=== PATIENT | male | born 1950 | race Two or more races ===

== ENCOUNTER 2022-11-16 00:45 | Inpatient (IN) | payer MEDICARE ==
[~2022-11-16] VITALS: Ht 167.6 cm; Wt 65.0 kg
[2022-11-16] MEDS ORDERED: ONDANSETRON HCL 4MG/2ML INJ IV ONE (01:15)
[2022-11-16] MEDS ORDERED: MORPHINE SULFATE 4 MG/ML CPJ (NOT FOR IM USE) IV ONE (01:15)
[2022-11-16 03:14] LABS: MEAN CORPUSCULAR HEMOGLOBIN 29.1 pg (28.0-32.0); MEAN CORPUSCULAR VOLUME 87.5 fL (80.0-94.0); MEAN PLATELET VOLUME 8.1 fl (7.4-10.4); PLATELET 224 x1000/uL (130-400); RED CELL DISTRIBUTION WIDTH 15.1 % (11.6-14.6)
[2022-11-16 03:21] LABS: CHLORIDE 101 mEq/L (98-107)
[2022-11-16 03:32] LABS: PLATELET ESTIMATE NORMAL
[2022-11-16] MEDS ORDERED: ALPR0.5T MT (14:00)
[2022-11-16] MEDS ORDERED: CLOP75TA33 PO (14:00)
[2022-11-16] MEDS ORDERED: METF-416 PO (14:00)
[2022-11-16] MEDS ORDERED: ATOR40TA70 PO (14:00)
[2022-11-16] MEDS ORDERED: POTA-202 PO (14:00)
[2022-11-16] MEDS ORDERED: METO25TA6 PO (14:00)
[2022-11-16] MEDS ORDERED: ASPI-1497 PO (14:00)
[2022-11-16] MEDS ORDERED: AMLO10TA80 PO (14:00)
[2022-11-16] MEDS ORDERED: ALLO100T57 PO (14:00)
[2022-11-16 14:03] VITALS: BP 146/78
[2022-11-16] MEDS ORDERED: MORPHINE SULFATE 2 MG/ML CPJ (NOT FOR IM USE) IV PRN (14:45)
[2022-11-16] MEDS ORDERED: DEXTROSE 50% WATER 50ML SYRINGE IV PRN (14:45)
[2022-11-16] MEDS ORDERED: POTASSIUM CHLORIDE 20MEQ TABLET SR PO NR (14:45)
[2022-11-16] MEDS ORDERED: ONDANSETRON HCL 4MG/2ML INJ IV PRN (14:45)
[2022-11-16] MEDS ORDERED: ALPRAZOLAM 0.5 MG TABLET PO PRN (14:45)
[2022-11-16] MEDS ORDERED: NALOXONE HCL 0.4MG/ML VIAL IV PRN (15:00)
[2022-11-16] MEDS ORDERED: ALLOPURINOL 300 MG TABLET PO SCH (15:00)
[2022-11-16] MEDS: ASPIRIN 81MG TABLET PO SCH (15:30)
[2022-11-16] MEDS: ACETAMINOPHEN 325MG TABLET PO PRN ×2 (15:30→21:34)
[2022-11-16] MEDS: CLOPIDOGREL 75MG TABLET PO SCH (15:30)
[2022-11-16] MEDS: GUAIFENESIN-DM 200MG-20MG/10ML UDC PO PRN ×2 (15:31→21:52)
[2022-11-16 16:00] VITALS: BP 124/76
[2022-11-16] MEDS: ALLOPURINOL 300 MG TABLET PO SCH (17:07)
[2022-11-16] MEDS: BLOOD SUGAR DIAGNOSTIC STRIP TEST SCH ×2 (17:07→21:43)
[2022-11-16] MEDS: INSULIN LISPRO 100 UNITS/ML SUBCUT SCH ×2 (17:15→21:44)
[2022-11-16 20:00] VITALS: BP 120/74
[2022-11-16] MEDS: ATORVASTATIN CALCIUM 40MG TABLET PO SCH (21:34)
[2022-11-16] MEDS: METOPROLOL TARTRATE 25MG TABLET PO SCH (21:43)
[2022-11-16] MEDS: ENOXAPARIN 40MG/0.4ML SYR SUBCUT SCH (21:47)
[2022-11-17] VITALS: BP 112/69
[2022-11-17 04:00] VITALS: BP 118/85
[2022-11-17 07:06] LABS: HEMATOCRIT. 44.4 % (42.0-52.0); HEMOGLOBIN. 14.8 g/dL (14.0-18.0); MEAN CORPUSCULAR HEMOGLOBIN 29.6 pg (28.0-32.0); MEAN CORPUSCULAR VOLUME 88.7 fL (80.0-94.0); PLATELET 215 x1000/uL (130-400); RED CELL DISTRIBUTION WIDTH 15.4 % (11.6-14.6)
[2022-11-17] MEDS: BLOOD SUGAR DIAGNOSTIC STRIP TEST SCH ×4 (07:43→20:18)
[2022-11-17 07:53] LABS: CHLORIDE 103 mEq/L (98-107)
[2022-11-17 08:00] VITALS: BP 125/77
[2022-11-17] MEDS ORDERED: METFORMIN HCL 500MG TABLET PO SCH (09:00)
[2022-11-17] MEDS: POTASSIUM CHLORIDE 10MEQ TABLET SR PO SCH (09:27)
[2022-11-17] MEDS: ASPIRIN 81MG TABLET PO SCH (09:27)
[2022-11-17] MEDS: METOPROLOL TARTRATE 25MG TABLET PO SCH ×2 (09:29→20:28)
[2022-11-17] MEDS: CLOPIDOGREL 75MG TABLET PO SCH (09:30)
[2022-11-17] MEDS: AMLODIPINE 10MG TABLET PO SCH (09:30)
[2022-11-17] MEDS: ALLOPURINOL 300 MG TABLET PO SCH (09:30)
[2022-11-17] MEDS: INSULIN LISPRO 100 UNITS/ML SUBCUT SCH ×4 (09:43→20:18)
[2022-11-17] MEDS ORDERED: NITROGLYCERIN 0.4MG TABLET SL SL PRN (10:45)
[2022-11-17] MEDS: ACETAMINOPHEN 325MG TABLET PO PRN (11:29)
[2022-11-17 12:00] VITALS: BP 105/61
[2022-11-17] MEDS: DEXT 5%/0.45% NACL 1000ML 1,000 ML IV SCH (15:30)
[2022-11-17 16:00] VITALS: BP 112/62
[2022-11-17 17:49] LABS: T4 FREE 1.12 ng/dL (0.76-1.46)
[2022-11-17 20:00] VITALS: BP 147/78
[2022-11-17] MEDS: ENOXAPARIN 40MG/0.4ML SYR SUBCUT SCH (20:18)
[2022-11-17] MEDS: ATORVASTATIN CALCIUM 40MG TABLET PO SCH (20:28)
[2022-11-18] VITALS (7 sets, daily range): BP systolic 93–139; BP diastolic 69–81
[2022-11-18] MEDS: ACETAMINOPHEN 325MG TABLET PO PRN ×2 (00:21→20:40)
[2022-11-18] MEDS: DEXT 5%/0.45% NACL 1000ML 1,000 ML IV SCH ×2 (04:17→16:20)
[2022-11-18 06:13] LABS: HEMATOCRIT. 43.6 % (42.0-52.0); HEMOGLOBIN. 14.6 g/dL (14.0-18.0); MEAN CORPUSCULAR HEMOGLOBIN 29.4 pg (28.0-32.0); MEAN CORPUSCULAR VOLUME 87.9 fL (80.0-94.0); MEAN PLATELET VOLUME 7.8 fl (7.4-10.4); PLATELET 217 x1000/uL (130-400); RED BLOOD CELL COUNT 4.96 mill/uL (4.7-6.1); RED CELL DISTRIBUTION WIDTH 15.1 % (11.6-14.6)
[2022-11-18] MEDS: BLOOD SUGAR DIAGNOSTIC STRIP TEST SCH ×4 (07:40→20:50)
[2022-11-18] MEDS: INSULIN LISPRO 100 UNITS/ML SUBCUT SCH ×4 (08:10→21:02)
[2022-11-18 08:18] LABS: CHLORIDE 102 mEq/L (98-107)
[2022-11-18 08:27] LABS: HDL CHOLESTEROL 31 mg/dL (40-59); LDL CHOLESTEROL 46 mg/dL (5-100)
[2022-11-18] MEDS: POTASSIUM CHLORIDE 10MEQ TABLET SR PO SCH (08:47)
[2022-11-18] MEDS: AMLODIPINE 10MG TABLET PO SCH (08:47)
[2022-11-18] MEDS: METOPROLOL TARTRATE 25MG TABLET PO SCH ×2 (08:47→20:33)
[2022-11-18] MEDS: CLOPIDOGREL 75MG TABLET PO SCH (08:47)
[2022-11-18] MEDS: ALLOPURINOL 300 MG TABLET PO SCH (08:47)
[2022-11-18] MEDS: ASPIRIN 81MG TABLET PO SCH (08:47)
[2022-11-18 10:42] LABS: PLATELET ESTIMATE NORMAL
[2022-11-18] MEDS ORDERED: ENOXAPARIN 80MG/0.8ML SYR SUBCUT NR (15:00)
[2022-11-18] MEDS: ISOSORBIDE DINITRATE 10MG TABLET PO SCH (16:19)
[2022-11-18 17:02] LABS: PROTHROMBIN TIME 10.3 sec (9.6-11.0)
[2022-11-18 18:39] LABS: PLATELET ESTIMATE NORMAL
[2022-11-18] MEDS: ATORVASTATIN CALCIUM 40MG TABLET PO SCH (20:40)
[2022-11-18] MEDS: NITROGLYCERIN OINT 1GM/INCH UDPKT TD SCH ×2 (22:00→22:34)
[2022-11-19] VITALS: BP 109/70
[2022-11-19 04:00] VITALS: BP 111/71
[2022-11-19] MEDS: NITROGLYCERIN OINT 1GM/INCH UDPKT TD SCH ×3 (06:07→23:04)
[2022-11-19] MEDS: DEXT 5%/0.45% NACL 1000ML 1,000 ML IV SCH (06:07)
[2022-11-19] MEDS: BLOOD SUGAR DIAGNOSTIC STRIP TEST SCH ×4 (06:20→21:00)
[2022-11-19] MEDS: INSULIN LISPRO 100 UNITS/ML SUBCUT SCH ×4 (06:25→23:03)
[2022-11-19] MEDS: GUAIFENESIN-DM 200MG-20MG/10ML UDC PO PRN ×3 (06:29→23:23)
[2022-11-19 08:00] VITALS: BP 126/78
[2022-11-19 08:08] LABS: BASOPHILS % 0.8 % (0.0-2.0); EOSINOPHILS % 8.6 % (0.0-5.0); HEMATOCRIT. 43.2 % (42.0-52.0); HEMOGLOBIN. 14.3 g/dL (14.0-18.0); LYMPHOCYTES % 23.2 % (20.0-50.0); MEAN CORPUSCULAR HEMOGLOBIN 29.1 pg (28.0-32.0); MEAN CORPUSCULAR VOLUME 87.7 fL (80.0-94.0); MEAN PLATELET VOLUME 7.8 fl (7.4-10.4); MONOCYTES % 12.4 % (2.0-8.0); PLATELET 244 x1000/uL (130-400); RED BLOOD CELL COUNT 4.92 mill/uL (4.7-6.1); RED CELL DISTRIBUTION WIDTH 15.2 % (11.6-14.6)
[2022-11-19] MEDS ORDERED: ENOXAPARIN 80MG/0.8ML SYR SUBCUT SCH (09:00)
[2022-11-19 09:05] LABS: CHLORIDE 105 mEq/L (98-107)
[2022-11-19] MEDS: ASPIRIN 81MG TABLET PO SCH (10:10)
[2022-11-19] MEDS: AMLODIPINE 10MG TABLET PO SCH (10:10)
[2022-11-19] MEDS: ISOSORBIDE DINITRATE 10MG TABLET PO SCH ×2 (10:10→17:00)
[2022-11-19] MEDS: ALLOPURINOL 300 MG TABLET PO SCH (10:11)
[2022-11-19] MEDS: METOPROLOL TARTRATE 25MG TABLET PO SCH ×2 (10:11→23:05)
[2022-11-19] MEDS: POTASSIUM CHLORIDE 10MEQ TABLET SR PO SCH (10:11)
[2022-11-19] MEDS: CLOPIDOGREL 75MG TABLET PO SCH (10:11)
[2022-11-19] MEDS: ACETAMINOPHEN 325MG TABLET PO PRN ×2 (10:47→23:23)
[2022-11-19 12:00] VITALS: BP 98/64
[2022-11-19] MEDS: ENOXAPARIN 80MG/0.8ML SYR SUBCUT SCH ×2 (13:52→23:05)
[2022-11-19] MEDS: SODIUM CHLORIDE 0.45% 1,000 ML IV SCH (14:04)
[2022-11-19 16:00] VITALS: BP 123/71
[2022-11-19 20:00] VITALS: BP 122/78
[2022-11-19] MEDS: ATORVASTATIN CALCIUM 40MG TABLET PO SCH (23:05)
[2022-11-20] MEDS: SODIUM CHLORIDE 0.45% 1,000 ML IV SCH ×2 (03:40→17:13)
[2022-11-20 04:00] VITALS: BP 131/81
[2022-11-20] MEDS: NITROGLYCERIN OINT 1GM/INCH UDPKT TD SCH ×4 (06:00→22:00)
[2022-11-20] MEDS: ACETAMINOPHEN 325MG TABLET PO PRN (06:55)
[2022-11-20] MEDS: BLOOD SUGAR DIAGNOSTIC STRIP TEST SCH ×4 (06:56→21:15)
[2022-11-20 07:01] LABS: BASOPHILS % 0.8 % (0.0-2.0); HEMATOCRIT. 43.4 % (42.0-52.0); HEMOGLOBIN. 14.1 g/dL (14.0-18.0); LYMPHOCYTES % 25.3 % (20.0-50.0); MEAN CORPUSCULAR HEMOGLOBIN 28.7 pg (28.0-32.0); MEAN CORPUSCULAR VOLUME 88.4 fL (80.0-94.0); MEAN PLATELET VOLUME 7.8 fl (7.4-10.4); MONOCYTES % 11.3 % (2.0-8.0); NEUTROPHILS % 55.6 % (40.0-76.0); PLATELET 247 x1000/uL (130-400); RED BLOOD CELL COUNT 4.91 mill/uL (4.7-6.1); RED CELL DISTRIBUTION WIDTH 15.1 % (11.6-14.6)
[2022-11-20] MEDS: INSULIN LISPRO 100 UNITS/ML SUBCUT SCH ×4 (07:10→21:19)
[2022-11-20 07:57] LABS: CHLORIDE 105 mEq/L (98-107)
[2022-11-20 08:00] VITALS: BP 133/82
[2022-11-20] MEDS: METOPROLOL TARTRATE 25MG TABLET PO SCH ×2 (09:33→21:15)
[2022-11-20] MEDS: ISOSORBIDE DINITRATE 10MG TABLET PO SCH ×2 (09:34→17:00)
[2022-11-20] MEDS: POTASSIUM CHLORIDE 10MEQ TABLET SR PO SCH (09:34)
[2022-11-20] MEDS: ALLOPURINOL 300 MG TABLET PO SCH (09:34)
[2022-11-20] MEDS: AMLODIPINE 10MG TABLET PO SCH (09:34)
[2022-11-20] MEDS ORDERED: HEPARIN 1000 UNITS/ML 10ML ONE (10:50)
[2022-11-20] MEDS ORDERED: IODIXANOL 320MG/ML 100 ML BOTTLE IV ONE ×2 (10:51→11:56)
[2022-11-20] MEDS ORDERED: MIDAZOLAM HCL 2 MG/2 ML VIAL ONE (11:11)
[2022-11-20] MEDS ORDERED: LIDOCAINE HCL/PF 1% 10 MG/ML 5ML VIAL ONE (11:11)
[2022-11-20] MEDS ORDERED: FENTANYL CITRATE/PF 50MCG/ML 2ML VIAL ONE (11:11)
[2022-11-20] MEDS ORDERED: ASPIRIN/SOD BICARB/CITRIC ACID 324MG TAB EFF ONE (11:24)
[2022-11-20] MEDS ORDERED: ATROPINE SULFATE 1MG/10ML SYR IV PRN (12:15)
[2022-11-20] MEDS ORDERED: NICARDIPINE 100MCG/ML 10ML VIAL (CATH LAB) IV ONE (13:36)
[2022-11-20] MEDS ORDERED: NITROGLYCERIN 50MCG/ML 10ML VIAL (CATH LAB) IV ONE (13:36)
[2022-11-20 13:40] VITALS: BP 133/83
[2022-11-20 16:00] VITALS: BP 124/71
[2022-11-20] MEDS: CLOPIDOGREL 75MG TABLET PO SCH (17:07)
[2022-11-20] MEDS: ASPIRIN 81MG TABLET PO SCH (17:07)
[2022-11-20 20:00] VITALS: BP 131/78
[2022-11-20] MEDS: ATORVASTATIN CALCIUM 40MG TABLET PO SCH (21:15)
[2022-11-21] VITALS: BP 121/64
[2022-11-21] MEDS: ACETAMINOPHEN 325MG TABLET PO PRN ×3 (00:57→21:27)
[2022-11-21 04:00] VITALS: BP 124/81
[2022-11-21] MEDS: NITROGLYCERIN OINT 1GM/INCH UDPKT TD SCH ×3 (06:00→21:28)
[2022-11-21] MEDS: BLOOD SUGAR DIAGNOSTIC STRIP TEST SCH ×4 (06:08→21:28)
[2022-11-21] MEDS: SODIUM CHLORIDE 0.45% 1,000 ML IV SCH ×2 (06:10→16:34)
[2022-11-21] MEDS: INSULIN LISPRO 100 UNITS/ML SUBCUT SCH ×4 (06:12→21:26)
[2022-11-21 07:35] LABS: BASOPHILS % 0.7 % (0.0-2.0); EOSINOPHILS % 5.4 % (0.0-5.0); HEMATOCRIT. 43.6 % (42.0-52.0); HEMOGLOBIN. 14.8 g/dL (14.0-18.0); LYMPHOCYTES % 24.1 % (20.0-50.0); MEAN CORPUSCULAR HEMOGLOBIN 29.6 pg (28.0-32.0); MEAN CORPUSCULAR VOLUME 87.3 fL (80.0-94.0); MEAN PLATELET VOLUME 7.9 fl (7.4-10.4); MONOCYTES % 12.1 % (2.0-8.0); NEUTROPHILS % 57.7 % (40.0-76.0); PLATELET 256 x1000/uL (130-400); RED BLOOD CELL COUNT 4.99 mill/uL (4.7-6.1); RED CELL DISTRIBUTION WIDTH 14.9 % (11.6-14.6)
[2022-11-21 08:23] VITALS: BP 115/75
[2022-11-21] MEDS: ISOSORBIDE DINITRATE 10MG TABLET PO SCH ×3 (08:36→15:11)
[2022-11-21] MEDS: ASPIRIN 81MG TABLET PO SCH (08:36)
[2022-11-21] MEDS: CLOPIDOGREL 75MG TABLET PO SCH (08:36)
[2022-11-21] MEDS: AMLODIPINE 10MG TABLET PO SCH (08:36)
[2022-11-21] MEDS: POTASSIUM CHLORIDE 10MEQ TABLET SR PO SCH (08:36)
[2022-11-21] MEDS: METOPROLOL TARTRATE 25MG TABLET PO SCH ×2 (08:37→21:27)
[2022-11-21] MEDS: ALLOPURINOL 300 MG TABLET PO SCH (08:37)
[2022-11-21 08:38] LABS: CHLORIDE 105 mEq/L (98-107)
[2022-11-21] MEDS: ENOXAPARIN 80MG/0.8ML SYR SUBCUT SCH ×2 (10:35→21:28)
[2022-11-21 12:00] VITALS: BP 107/74
[2022-11-21] MEDS: GUAIFENESIN-DM 200MG-20MG/10ML UDC PO PRN ×2 (13:09→21:28)
[2022-11-21 16:00] VITALS: BP 124/77
[2022-11-21 20:00] VITALS: BP 129/82
[2022-11-21] MEDS: ATORVASTATIN CALCIUM 40MG TABLET PO SCH (21:26)
[2022-11-22] VITALS: BP 130/82
[2022-11-22 04:00] VITALS: BP 156/87
[2022-11-22] MEDS: NITROGLYCERIN OINT 1GM/INCH UDPKT TD SCH ×3 (05:42→22:00)
[2022-11-22] MEDS: ACETAMINOPHEN 325MG TABLET PO PRN ×2 (05:42→22:21)
[2022-11-22] MEDS: BLOOD SUGAR DIAGNOSTIC STRIP TEST SCH ×4 (05:47→21:12)
[2022-11-22] MEDS: INSULIN LISPRO 100 UNITS/ML SUBCUT SCH ×4 (06:41→21:11)
[2022-11-22 08:00] VITALS: BP 120/76
[2022-11-22] MEDS: ALLOPURINOL 300 MG TABLET PO SCH (08:37)
[2022-11-22] MEDS: ASPIRIN 81MG TABLET PO SCH (08:37)
[2022-11-22] MEDS: CLOPIDOGREL 75MG TABLET PO SCH (08:38)
[2022-11-22] MEDS: AMLODIPINE 10MG TABLET PO SCH (08:38)
[2022-11-22] MEDS: POTASSIUM CHLORIDE 10MEQ TABLET SR PO SCH (08:38)
[2022-11-22] MEDS: METOPROLOL TARTRATE 25MG TABLET PO SCH ×2 (08:39→21:12)
[2022-11-22] MEDS: ISOSORBIDE DINITRATE 10MG TABLET PO SCH ×3 (08:39→17:00)
[2022-11-22] MEDS: SODIUM CHLORIDE 0.45% 1,000 ML IV SCH ×2 (08:41→22:00)
[2022-11-22] MEDS: ENOXAPARIN 80MG/0.8ML SYR SUBCUT SCH ×2 (09:00→21:12)
[2022-11-22 10:41] LABS: BASOPHILS % 0.8 % (0.0-2.0); HEMATOCRIT. 43.6 % (42.0-52.0); HEMOGLOBIN. 14.3 g/dL (14.0-18.0); LYMPHOCYTES % 19.6 % (20.0-50.0); MEAN CORPUSCULAR HEMOGLOBIN 28.8 pg (28.0-32.0); MEAN CORPUSCULAR VOLUME 87.7 fL (80.0-94.0); MEAN PLATELET VOLUME 7.5 fl (7.4-10.4); MONOCYTES % 11.6 % (2.0-8.0); PLATELET 259 x1000/uL (130-400); RED BLOOD CELL COUNT 4.98 mill/uL (4.7-6.1); RED CELL DISTRIBUTION WIDTH 15.3 % (11.6-14.6)
[2022-11-22 11:02] LABS: CHLORIDE 107 mEq/L (98-107)
[2022-11-22 12:00] VITALS: BP 130/78
[2022-11-22 16:00] VITALS: BP 118/85
[2022-11-22 20:00] VITALS: BP 127/75
[2022-11-22] MEDS: ATORVASTATIN CALCIUM 40MG TABLET PO SCH (21:11)
[2022-11-22] MEDS: GUAIFENESIN-DM 200MG-20MG/10ML UDC PO PRN (21:38)
[2022-11-23] VITALS: BP 116/84
[2022-11-23 04:00] VITALS: BP 124/76
[2022-11-23] MEDS: NITROGLYCERIN OINT 1GM/INCH UDPKT TD SCH ×3 (05:41→21:21)
[2022-11-23] MEDS: BLOOD SUGAR DIAGNOSTIC STRIP TEST SCH ×4 (05:41→21:07)
[2022-11-23 08:00] VITALS: BP_SYST 115; BP_DIAS 71; BP_DIAS 76
[2022-11-23] MEDS: ISOSORBIDE DINITRATE 10MG TABLET PO SCH ×2 (09:00→16:41)
[2022-11-23] MEDS: ASPIRIN 81MG TABLET PO SCH (09:32)
[2022-11-23] MEDS: POTASSIUM CHLORIDE 10MEQ TABLET SR PO SCH (09:33)
[2022-11-23] MEDS: METOPROLOL TARTRATE 25MG TABLET PO SCH ×2 (09:33→21:07)
[2022-11-23] MEDS: AMLODIPINE 10MG TABLET PO SCH (09:33)
[2022-11-23] MEDS: CLOPIDOGREL 75MG TABLET PO SCH (09:34)
[2022-11-23] MEDS: ALLOPURINOL 300 MG TABLET PO SCH (09:34)
[2022-11-23] MEDS: ENOXAPARIN 80MG/0.8ML SYR SUBCUT SCH ×2 (09:35→21:07)
[2022-11-23 12:00] VITALS: BP 135/75
[2022-11-23] MEDS: SODIUM CHLORIDE 0.45% 1,000 ML IV SCH ×2 (12:16→23:54)
[2022-11-23] MEDS: INSULIN LISPRO 100 UNITS/ML SUBCUT SCH ×3 (12:22→21:07)
[2022-11-23 16:00] VITALS: BP 136/77
[2022-11-23 20:00] VITALS: BP 142/83
[2022-11-23] MEDS: GUAIFENESIN-DM 200MG-20MG/10ML UDC PO PRN (21:07)
[2022-11-23] MEDS: ATORVASTATIN CALCIUM 40MG TABLET PO SCH (21:07)
[2022-11-23] MEDS: ACETAMINOPHEN 325MG TABLET PO PRN (21:21)
[2022-11-24] VITALS (12 sets, daily range): BP systolic 113–132; BP diastolic 71–80
[2022-11-24] MEDS: BLOOD SUGAR DIAGNOSTIC STRIP TEST SCH ×3 (05:27→20:39)
[2022-11-24] MEDS: INSULIN LISPRO 100 UNITS/ML SUBCUT SCH ×3 (05:27→20:40)
[2022-11-24] MEDS: NITROGLYCERIN OINT 1GM/INCH UDPKT TD SCH ×3 (05:28→22:00)
[2022-11-24] MEDS: ISOSORBIDE DINITRATE 10MG TABLET PO SCH ×2 (09:00→16:00)
[2022-11-24] MEDS: METOPROLOL TARTRATE 25MG TABLET PO SCH ×2 (09:52→20:39)
[2022-11-24] MEDS: CLOPIDOGREL 75MG TABLET PO SCH (09:52)
[2022-11-24] MEDS: ALLOPURINOL 300 MG TABLET PO SCH (09:52)
[2022-11-24] MEDS: POTASSIUM CHLORIDE 10MEQ TABLET SR PO SCH (09:52)
[2022-11-24] MEDS: ASPIRIN 81MG TABLET PO SCH ×2 (09:52→17:18)
[2022-11-24] MEDS: AMLODIPINE 10MG TABLET PO SCH (09:53)
[2022-11-24 11:49] LABS: CHLORIDE 106 mEq/L (98-107)
[2022-11-24 12:10] LABS: BASOPHILS % 0.8 % (0.0-2.0); EOSINOPHILS % 5.9 % (0.0-5.0); HEMATOCRIT. 43.8 % (42.0-52.0); HEMOGLOBIN. 14.4 g/dL (14.0-18.0); LYMPHOCYTES % 19.4 % (20.0-50.0); MEAN CORPUSCULAR HEMOGLOBIN 29.3 pg (28.0-32.0); MEAN PLATELET VOLUME 7.5 fl (7.4-10.4); MONOCYTES % 11.4 % (2.0-8.0); NEUTROPHILS % 62.5 % (40.0-76.0); PLATELET 309 x1000/uL (130-400); RED BLOOD CELL COUNT 4.93 mill/uL (4.7-6.1); RED CELL DISTRIBUTION WIDTH 15.1 % (11.6-14.6)
[2022-11-24] MEDS ORDERED: HEPARIN 1000 UNITS/ML 10ML ONE (12:28)
[2022-11-24] MEDS ORDERED: ASPIRIN/SOD BICARB/CITRIC ACID 324MG TAB EFF ONE ×2 (12:43→12:51)
[2022-11-24] MEDS ORDERED: LIDOCAINE HCL 1% 20ML VIAL (Pyxis) INJ ONE (12:47)
[2022-11-24] MEDS ORDERED: FENTANYL CITRATE/PF 50MCG/ML 2ML VIAL ONE (13:02)
[2022-11-24] MEDS ORDERED: MIDAZOLAM HCL 2 MG/2 ML VIAL ONE (13:02)
[2022-11-24] MEDS ORDERED: IODIXANOL 320MG/ML 100 ML BOTTLE IV ONE ×2 (13:05→14:09)
[2022-11-24] MEDS ORDERED: CLOPIDOGREL 75MG TABLET ONE (14:18)
[2022-11-24] MEDS ORDERED: ONDANSETRON HCL 4MG/2ML INJ IV PRN (14:45)
[2022-11-24] MEDS ORDERED: CLOPIDOGREL 75MG TABLET PO NR (14:45)
[2022-11-24] MEDS ORDERED: MORPHINE SULFATE 2 MG/ML CPJ (NOT FOR IM USE) IV PRN (14:45)
[2022-11-24] MEDS ORDERED: ATROPINE SULFATE 1MG/10ML SYR IV PRN (14:45)
[2022-11-24] MEDS ORDERED: ACETAMINOPHEN 325MG TABLET PO PRN (14:45)
[2022-11-24] MEDS: SODIUM CHLORIDE 0.45% 1,000 ML IV SCH (16:01)
[2022-11-24] MEDS: GUAIFENESIN-DM 200MG-20MG/10ML UDC PO PRN (20:38)
[2022-11-24] MEDS: ATORVASTATIN CALCIUM 40MG TABLET PO SCH (20:38)
[2022-11-24] MEDS: ACETAMINOPHEN 325MG TABLET PO PRN (20:38)
[2022-11-25] VITALS: BP 117/71
[2022-11-25] MEDS: SODIUM CHLORIDE 0.45% 1,000 ML IV SCH (03:47)
[2022-11-25] MEDS: ACETAMINOPHEN 325MG TABLET PO PRN (03:53)
[2022-11-25 04:00] VITALS: BP 123/77
[2022-11-25] MEDS: NITROGLYCERIN OINT 1GM/INCH UDPKT TD SCH ×2 (06:00→13:07)
[2022-11-25] MEDS: BLOOD SUGAR DIAGNOSTIC STRIP TEST SCH ×2 (06:19→11:53)
[2022-11-25] MEDS: INSULIN LISPRO 100 UNITS/ML SUBCUT SCH ×2 (07:13→12:20)
[2022-11-25 08:00] VITALS: BP 118/71
[2022-11-25 08:01] LABS: BASOPHILS % 0.6 % (0.0-2.0); EOSINOPHILS % 4.2 % (0.0-5.0); HEMATOCRIT. 41.2 % (42.0-52.0); LYMPHOCYTES % 15.8 % (20.0-50.0); MEAN CORPUSCULAR HEMOGLOBIN 29.6 pg (28.0-32.0); MEAN CORPUSCULAR VOLUME 87.3 fL (80.0-94.0); MEAN PLATELET VOLUME 7.7 fl (7.4-10.4); MONOCYTES % 12.1 % (2.0-8.0); NEUTROPHILS % 67.3 % (40.0-76.0); PLATELET 272 x1000/uL (130-400); RED BLOOD CELL COUNT 4.71 mill/uL (4.7-6.1); RED CELL DISTRIBUTION WIDTH 14.9 % (11.6-14.6)
[2022-11-25] MEDS: ALLOPURINOL 300 MG TABLET PO SCH (08:14)
[2022-11-25] MEDS: AMLODIPINE 10MG TABLET PO SCH (08:14)
[2022-11-25] MEDS: POTASSIUM CHLORIDE 10MEQ TABLET SR PO SCH (08:14)
[2022-11-25] MEDS: CLOPIDOGREL 75MG TABLET PO SCH (08:14)
[2022-11-25] MEDS: ASPIRIN 81MG TABLET PO SCH (08:14)
[2022-11-25] MEDS: METOPROLOL TARTRATE 25MG TABLET PO SCH (08:15)
[2022-11-25] MEDS: ISOSORBIDE DINITRATE 10MG TABLET PO SCH (08:15)
[2022-11-25 09:49] LABS: CHLORIDE 105 mEq/L (98-107)
[2022-11-25] MEDS ORDERED: NALOXONE HCL 0.4MG/ML VIAL IV PRN (10:15)
[2022-11-25 12:00] VITALS: BP 122/73
[2022-11-25 13:24] VITALS: BP 122/73
[2022-11-25 16:00] VITALS: BP 120/71
== END 2022-11-25 18:45 | disposition home or self-care (01) | DRG 246 ==
LOC: ER 00:45 → MICUSO 04:55 → 7WST 14:00 → 7EST 11-18 08:21 → 3WST 11-24 15:07
PROVIDERS: ADMIT Internal Medicine; ATTEND Internal Medicine
PROC: 4A023N7 Measurement of Cardiac Sampling and Pressure, Left Heart, Percutaneous Approach (ICD-10-PCS; 2022-11-20)
PROC: B2111ZZ Fluoroscopy of Multiple Coronary Arteries using Low Osmolar Contrast (ICD-10-PCS; 2022-11-20)
PROC: B2151ZZ Fluoroscopy of Left Heart using Low Osmolar Contrast (ICD-10-PCS; 2022-11-20)
PROC: 027034Z Dilation of Coronary Artery, One Artery with Drug-eluting Intraluminal Device, Percutaneous Approach (ICD-10-PCS; principal; 2022-11-24)
PROC: 02703ZZ Dilation of Coronary Artery, One Artery, Percutaneous Approach (ICD-10-PCS; 2022-11-24)
DX: I25.110 Atherosclerotic heart disease of native coronary artery with unstable angina pectoris (principal); U07.1 COVID-19; I11.0 Hypertensive heart disease with heart failure; I50.9 Heart failure, unspecified; D72.825 Bandemia; E11.65 Type 2 diabetes mellitus with hyperglycemia; I25.2 Old myocardial infarction; Z95.5 Presence of coronary angioplasty implant and graft
CPT/HCPCS: 36415; 71045; 80048; 80053; 80061; 82962; 83036; 83735; 83880; 84439; 84443; 84480; 84484; 85025; 85347; 87426; 92928; 93005; 93306; 93454; 93458; 93922; 99285; C1725; C1760; C1769; C1874; C1887; C1893; J1644; J1650; J1815; J2250; J2270; J2405; J3010; J3490; Q9967; U0003; U0005; C1761

== ENCOUNTER 2024-03-20 19:31 | Inpatient (IN) | payer MEDICARE ==
[~2024-03-20] VITALS: Ht 167.6 cm; Wt 60.8 kg
[~2024-03-20 19:31] MED LIST: ALLO100T57 PO; ALPR0.5T MT; AMLO10TA80 PO; ASPI-1497 PO; ATOR40TA70 PO; CLOP75TA33 PO; METF-416 PO; METO25TA6 PO; POTA-202 PO
[2024-03-20 21:32] LABS: BASOPHILS % 0.3 % (0.0-2.0); EOSINOPHILS % 1.4 % (0.0-5.0); HEMATOCRIT. 39.3 % (42.0-52.0); HEMOGLOBIN. 12.9 g/dL (14.0-18.0); LYMPHOCYTES % 5.5 % (20.0-50.0); MEAN CORPUSCULAR HEMOGLOBIN 28.1 pg (28.0-32.0); MEAN CORPUSCULAR HGB CONC 32.8 g/dL (31.0-37.0); MEAN CORPUSCULAR VOLUME 85.6 fL (80.0-94.0); MEAN PLATELET VOLUME 8.1 fl (7.4-10.4); NEUTROPHILS % 84.8 % (40.0-76.0); PLATELET 271 x1000/uL (130-400); RED BLOOD CELL COUNT 4.59 mill/uL (4.7-6.1); RED CELL DISTRIBUTION WIDTH 16.2 % (11.6-14.6); WHITE BLOOD COUNT 10.3 x1000/uL (4.5-11.0)
[2024-03-20 21:33] LABS: DIFFERENTIAL COMMENT 1
[2024-03-20 21:38] LABS: CHLORIDE 99 mEq/L (98-107); POTASSIUM 3.1 mEq/L (3.5-5.1); SODIUM 136 mEq/L (136-145)
[2024-03-20 21:39] LABS: CALCIUM 9.3 mg/dL (8.7-10.4); CARBON DIOXIDE 28 mEq/L (21-32)
[2024-03-20 21:42] LABS: INR 1.3; PROTHROMBIN TIME 14.5 sec (9.6-11.0)
[2024-03-20 21:44] LABS: CREATININE 0.5 mg/dL (0.6-1.3); GLUCOSE 160 mg/dL (70-105); UREA NITROGEN BLOOD 7 mg/dL (9-23)
[2024-03-20] MEDS: MORPHINE SULFATE 2 MG/ML INJ (NOT FOR IM USE) IV ONE (22:06)
[2024-03-20 22:10] LABS: CLARITY URINE CLEAR (CLEAR); COLOR URINE YELLOW (YELLOW); GLUCOSE URINE NEGATIVE (NEGATIVE); KETONES URINE NEGATIVE (NEGATIVE); LEUKOCYTE ESTERASE URINE NEGATIVE (NEGATIVE); NITRITE URINE NEGATIVE (NEGATIVE); OCCULT BLOOD URINE NEGATIVE (NEGATIVE); PROTEIN URINE NEGATIVE (NEGATIVE); SPECIFIC GRAVITY URINE 1.014 (1.005-1.030); UROBILINOGEN URINE 0.2 E.U./dL (0.2-1.0)
[2024-03-20 23:04] LABS: ALANINE AMINOTRANSFERASE 21 IU/L (10-49); ASPARTATE AMINOTRANSFERASE 27 IU/L (<34)
[2024-03-20 23:05] LABS: ALBUMIN 3.5 g/dL (3.2-4.8); BILIRUBIN DIRECT 0.9 mg/dL (<=3.0); BILIRUBIN TOTAL 1.5 mg/dL (0.1-1.0); PROTEIN TOTAL 6.4 g/dL (6.0-8.3)
[2024-03-21] MEDS: IOHEXOL-300 100 ML BOTTLE ONE (00:28)
[2024-03-21] MEDS: MORPHINE SULFATE 4 MG/ML INJ (FOR IV/IM USE) IV ONE (03:53)
[2024-03-21] MEDS ORDERED: HEPARIN 25,000 UNITS PREMIX 250 ML IV STA (03:56)
[2024-03-21] MEDS ORDERED: HEPARIN 5000 UNITS/ML VIAL IV ONE (04:00)
[2024-03-21] MEDS: HEPARIN 80 UNITS/KG BOLUS IV NR (04:58)
[2024-03-21] MEDS: HEPARIN 25,000 UNITS PREMIX 250 ML IV SCH (05:08)
[2024-03-21 09:00] VITALS: BP 151/80; PULSE 86; RESP 19; TEMP 97.8
[2024-03-21] MEDS ORDERED: ACETAMINOPHEN 325MG TABLET PO PRN (10:00)
[2024-03-21] MEDS ORDERED: ALPRAZOLAM 0.5 MG TABLET PO PRN (10:00)
[2024-03-21] MEDS ORDERED: CLONIDINE 0.1MG TABLET PO PRN (10:00)
[2024-03-21 10:18] LABS: BG CARBOXYHEMOGLOBIN 0.9 % (0.5-1.5); BG DEOXYHEMOGLOBIN 4.6 % (0.0-5.0); BG FRACTION INSPIRED OXYGEN 21; BG HCO3 ACT 26.1 mmol/L (22.0-26.0); BG METHEMOGLOBIN 0.3 % (0.0-1.5); BG OXYGEN SATURATION 95.3 % (92.0-98.5); BG OXYHEMOGLOBIN 94.2 % (94.0-97.0); BG PCO2 35.1 mmHg (35.0-45.0); BG PH 7.489 (7.350-7.450); BG PO2 72.7 mmHg (75.0-100.0); BG SAMPLE SITE RIGHT RADIAL; BG TOTAL HEMOGLOBIN 13.6 g/dL (12.0-18.0); BG VENT MODE ROOM AIR
[2024-03-21] MEDS ORDERED: DEXTROSE 50% WATER 50ML SYRINGE IV PRN (10:30)
[2024-03-21] MEDS: SODIUM CHLORIDE 0.9% 1,000 ML IV SCH (10:45)
[2024-03-21] MEDS ORDERED: HEPARIN BOLUS PRN aPTT <36 IV (11:00)
[2024-03-21] MEDS: HEPARIN BOLUS PRN aPTT 37-44 IV (11:52)
[2024-03-21 12:00] VITALS: BP 155/82; PULSE 84; RESP 18; TEMP 97.9
[2024-03-21] MEDS: BLOOD SUGAR DIAGNOSTIC STRIP TEST SCH (12:40)
[2024-03-21] MEDS: INSULIN LISPRO 100 UNITS/ML SUBCUT SCH (12:55)
[2024-03-21 13:04] LABS: HEPATITIS B SURFACE ANTIGEN NEGATIVE (Negative)
[2024-03-21 13:25] LABS: HEPATITIS C AB NON REACTIVE (Neg) (Negative)
[2024-03-21 16:00] VITALS: BP 150/83; PULSE 85; RESP 19; TEMP 97.8
[2024-03-21 17:18] LABS: ALANINE AMINOTRANSFERASE 24 IU/L (10-49); ALBUMIN 3.9 g/dL (3.2-4.8); ASPARTATE AMINOTRANSFERASE 25 IU/L (<34); BILIRUBIN DIRECT 1.1 mg/dL (<=3.0)
[2024-03-21 17:19] LABS: BILIRUBIN TOTAL 1.7 mg/dL (0.1-1.0); PROTEIN TOTAL 6.7 g/dL (6.0-8.3)
[2024-03-21] MEDS ORDERED: NALOXONE HCL 0.4MG/ML VIAL IV PRN (18:00)
[2024-03-21] MEDS: MORPHINE SULFATE 2 MG/ML INJ (NOT FOR IM USE) IV PRN (18:29)
[2024-03-21 20:00] VITALS: BP 140/83; PULSE 85; RESP 18; TEMP 96.4
[2024-03-21] MEDS: ATORVASTATIN CALCIUM 40MG TABLET PO SCH (20:42)
[2024-03-21] MEDS: METOPROLOL TARTRATE 25MG TABLET PO SCH (20:43)
[2024-03-22] VITALS: BP 139/81; PULSE 74; RESP 18; TEMP 98.1
[2024-03-22 04:00] VITALS: BP 145/73; PULSE 87; RESP 18; TEMP 99.5
[2024-03-22 06:31] LABS: HEMATOCRIT. 36.1 % (42.0-52.0); HEMOGLOBIN. 11.7 g/dL (14.0-18.0); MEAN CORPUSCULAR HEMOGLOBIN 27.7 pg (28.0-32.0); MEAN CORPUSCULAR HGB CONC 32.4 g/dL (31.0-37.0); MEAN CORPUSCULAR VOLUME 85.4 fL (80.0-94.0); PLATELET 306 x1000/uL (130-400); RED BLOOD CELL COUNT 4.23 mill/uL (4.7-6.1); RED CELL DISTRIBUTION WIDTH 15.8 % (11.6-14.6); WHITE BLOOD COUNT 12.7 x1000/uL (4.5-11.0)
[2024-03-22 06:40] LABS: DIFFERENTIAL COMMENT 1
[2024-03-22 06:47] LABS: CHLORIDE 99 mEq/L (98-107); SODIUM 135 mEq/L (136-145)
[2024-03-22 06:50] LABS: CARBON DIOXIDE 26 mEq/L (21-32)
[2024-03-22 06:51] LABS: CALCIUM 8.9 mg/dL (8.7-10.4)
[2024-03-22 06:55] LABS: ALANINE AMINOTRANSFERASE 24 IU/L (10-49); CREATININE 0.4 mg/dL (0.6-1.3)
[2024-03-22 06:56] LABS: ASPARTATE AMINOTRANSFERASE 25 IU/L (<34); GLUCOSE 165 mg/dL (70-105); UREA NITROGEN BLOOD 9 mg/dL (9-23)
[2024-03-22 06:57] LABS: ALBUMIN 3.8 g/dL (3.2-4.8); AMMONIA 65 uMol/L (<32)
[2024-03-22 06:58] LABS: PROTEIN TOTAL 6.2 g/dL (6.0-8.3)
[2024-03-22 08:04] LABS: BILIRUBIN TOTAL 2.8 mg/dL (0.1-1.0)
[2024-03-22 08:05] LABS: POTASSIUM 2.6 mEq/L (3.5-5.1)
[2024-03-22] MEDS: ALLOPURINOL 100 MG TABLET PO SCH (09:08)
[2024-03-22] MEDS: AMLODIPINE 10MG TABLET PO SCH (09:08)
[2024-03-22] MEDS: LIDOCAINE HCL 1% 10 MG/ML 10ML VIAL ONE (09:22)
[2024-03-22] MEDS: IOHEXOL-350 100 ML BOTTLE ONE (10:13)
[2024-03-22] MEDS: ONDANSETRON HCL 4MG/2ML INJ IV PRN (10:44)
[2024-03-22] MEDS: KCL 20MEQ/100ML PREMIX 100 ML IV SCH (11:06)
[2024-03-22 16:26] LABS: PLATELET ESTIMATE NORMAL
[2024-03-22] MEDS: HYDROMORPHONE HCL/PF 2MG/ML INJ IV PRN (17:08)
[2024-03-22 20:00] VITALS: BP 125/73; PULSE 71; RESP 20; TEMP 97.7
[2024-03-22] MEDS: LACTULOSE 20G/30ML UDC PO SCH (21:27)
[2024-03-23] VITALS: BP 157/83; PULSE 75; RESP 20; TEMP 97.7
[2024-03-23 04:00] VITALS: BP 127/65; PULSE 97; RESP 20; TEMP 99.6
[2024-03-23 05:53] LABS: AMMONIA 33 uMol/L (<32)
[2024-03-23 06:04] LABS: HEMATOCRIT. 32.7 % (42.0-52.0); HEMOGLOBIN. 10.5 g/dL (14.0-18.0); MEAN CORPUSCULAR HEMOGLOBIN 27.3 pg (28.0-32.0); MEAN CORPUSCULAR HGB CONC 32.2 g/dL (31.0-37.0); MEAN CORPUSCULAR VOLUME 84.9 fL (80.0-94.0); MEAN PLATELET VOLUME 8.3 fl (7.4-10.4); PLATELET 247 x1000/uL (130-400); RED BLOOD CELL COUNT 3.86 mill/uL (4.7-6.1); RED CELL DISTRIBUTION WIDTH 15.7 % (11.6-14.6); WHITE BLOOD COUNT 11.7 x1000/uL (4.5-11.0)
[2024-03-23 06:10] LABS: CARBON DIOXIDE 28 mEq/L (21-32); CHLORIDE 99 mEq/L (98-107); SODIUM 137 mEq/L (136-145)
[2024-03-23 06:11] LABS: CALCIUM 8.6 mg/dL (8.7-10.4)
[2024-03-23 06:16] LABS: CREATININE 0.4 mg/dL (0.6-1.3); GLUCOSE 201 mg/dL (70-105); UREA NITROGEN BLOOD 9 mg/dL (9-23)
[2024-03-23 06:17] LABS: ALANINE AMINOTRANSFERASE 25 IU/L (10-49)
[2024-03-23 06:18] LABS: ALBUMIN 3.4 g/dL (3.2-4.8); ASPARTATE AMINOTRANSFERASE 27 IU/L (<34); BILIRUBIN DIRECT 2.1 mg/dL (<=3.0); BILIRUBIN TOTAL 2.8 mg/dL (0.1-1.0); PHOSPHORUS 2.9 mg/dL (2.5-4.9); PROTEIN TOTAL 5.7 g/dL (6.0-8.3)
[2024-03-23 06:32] LABS: POTASSIUM 2.7 mEq/L (3.5-5.1)
[2024-03-23 06:46] LABS: DIFFERENTIAL COMMENT 1
[2024-03-23 07:09] LABS: CARCINOEMBRYONIC AG - SEND OUT 52.1 ng/mL (0.0-4.7)
[2024-03-23 08:00] VITALS: BP 129/67; PULSE 68; RESP 18; TEMP 96.9
[2024-03-23] MEDS: POTASSIUM CHLORIDE 20MEQ TABLET SR PO NR ×2 (09:26→10:45)
[2024-03-23 12:00] VITALS: BP 126/64; PULSE 64; RESP 18; TEMP 97.8
[2024-03-23] MEDS ORDERED: POTA-205 MT (15:26)
[2024-03-23] MEDS ORDERED: APIX5TAB MT (15:26)
[2024-03-23 16:00] VITALS: BP 142/73; PULSE 75; RESP 18; TEMP 97.2
[2024-03-23 17:42] LABS: PLATELET ESTIMATE NORMAL
[2024-03-23 20:00] VITALS: BP 127/61; PULSE 78; RESP 20; TEMP 97.7
[2024-03-24 00:27] VITALS: BP 148/81; PULSE 73; RESP 20; TEMP 96.9
[2024-03-24 04:00] VITALS: PULSE 77; RESP 20; TEMP 97.2
[2024-03-24 06:46] LABS: CHLORIDE 100 mEq/L (98-107); POTASSIUM 3.3 mEq/L (3.5-5.1); SODIUM 136 mEq/L (136-145)
[2024-03-24 06:49] LABS: CARBON DIOXIDE 28 mEq/L (21-32)
[2024-03-24 06:50] LABS: CALCIUM 8.7 mg/dL (8.7-10.4)
[2024-03-24 06:54] LABS: CREATININE 0.5 mg/dL (0.6-1.3)
[2024-03-24 06:55] LABS: ALANINE AMINOTRANSFERASE 30 IU/L (10-49); GLUCOSE 165 mg/dL (70-105); UREA NITROGEN BLOOD 9 mg/dL (9-23)
[2024-03-24 06:57] LABS: ALBUMIN 3.4 g/dL (3.2-4.8); ASPARTATE AMINOTRANSFERASE 34 IU/L (<34); BILIRUBIN DIRECT 2.1 mg/dL (<=3.0); BILIRUBIN TOTAL 2.9 mg/dL (0.1-1.0); PROTEIN TOTAL 5.8 g/dL (6.0-8.3)
[2024-03-24 06:58] LABS: AMMONIA 46 uMol/L (<32); HEMATOCRIT. 32.5 % (42.0-52.0); HEMOGLOBIN. 10.7 g/dL (14.0-18.0); MEAN CORPUSCULAR HEMOGLOBIN 27.9 pg (28.0-32.0); MEAN CORPUSCULAR HGB CONC 32.9 g/dL (31.0-37.0); MEAN CORPUSCULAR VOLUME 84.9 fL (80.0-94.0); MEAN PLATELET VOLUME 8.2 fl (7.4-10.4); PLATELET 257 x1000/uL (130-400); RED BLOOD CELL COUNT 3.83 mill/uL (4.7-6.1); RED CELL DISTRIBUTION WIDTH 15.8 % (11.6-14.6); WHITE BLOOD COUNT 9.9 x1000/uL (4.5-11.0)
[2024-03-24 07:52] LABS: DIFFERENTIAL COMMENT 1
[2024-03-24] MEDS ORDERED: POTASSIUM CHLORIDE 20MEQ TABLET SR PO NR (10:45)
[2024-03-24 12:15] LABS: NUCLEATED RED BLOOD CELLS 1 /100 WBC
[2024-03-24 12:16] LABS: ANISOCYTOSIS 1+; PLATELET ESTIMATE NORMAL
[2024-03-24] MEDS: HYDROMORPHONE HCL/PF 2MG/ML INJ IV PRN (12:20)
[2024-03-24] MEDS: KCL 20MEQ/100ML PREMIX 100 ML IV SCH (12:36)
[2024-03-24 20:56] VITALS: BP 99/58; PULSE 85; RESP 18; TEMP 97.9
[2024-03-25 00:19] VITALS: BP 105/54; PULSE 94; RESP 20; TEMP 97.9
[2024-03-25 04:53] VITALS: BP 150/63; PULSE 96; RESP 20; TEMP 98.8
[2024-03-25 06:48] LABS: HEMATOCRIT. 27.8 % (42.0-52.0); HEMOGLOBIN. 9.2 g/dL (14.0-18.0); MEAN CORPUSCULAR HGB CONC 33.2 g/dL (31.0-37.0); MEAN CORPUSCULAR VOLUME 84.2 fL (80.0-94.0); MEAN PLATELET VOLUME 8.3 fl (7.4-10.4); PLATELET 197 x1000/uL (130-400); RED CELL DISTRIBUTION WIDTH 15.8 % (11.6-14.6); WHITE BLOOD COUNT 7.9 x1000/uL (4.5-11.0)
[2024-03-25 06:49] LABS: CHLORIDE 103 mEq/L (98-107); POTASSIUM 2.9 mEq/L (3.5-5.1); SODIUM 135 mEq/L (136-145)
[2024-03-25 06:52] LABS: CARBON DIOXIDE 27 mEq/L (21-32)
[2024-03-25 06:53] LABS: CALCIUM 7.6 mg/dL (8.7-10.4)
[2024-03-25 06:58] LABS: GLUCOSE 157 mg/dL (70-105); UREA NITROGEN BLOOD 6 mg/dL (9-23)
[2024-03-25 06:59] LABS: ALANINE AMINOTRANSFERASE 28 IU/L (10-49); ALBUMIN 2.8 g/dL (3.2-4.8); ASPARTATE AMINOTRANSFERASE 32 IU/L (<34)
[2024-03-25 07:00] LABS: BILIRUBIN DIRECT 1.9 mg/dL (<=3.0); BILIRUBIN TOTAL 2.4 mg/dL (0.1-1.0); PROTEIN TOTAL 4.9 g/dL (6.0-8.3)
[2024-03-25 07:01] LABS: AMMONIA 32 uMol/L (<32)
[2024-03-25 07:40] LABS: DIFFERENTIAL COMMENT 1
[2024-03-25 08:46] LABS: CREATININE 0.3 mg/dL (0.6-1.3)
[2024-03-25 08:49] VITALS: BP 147/67; PULSE 94; RESP 18; TEMP 98.1
[2024-03-25] MEDS ORDERED: POTASSIUM CHLORIDE 20MEQ/PACKET PO NR (09:30)
[2024-03-25] MEDS: KCL 20MEQ/100ML PREMIX 100 ML IV SCH (11:18)
[2024-03-25 11:51] VITALS: BP 112/82; PULSE 95; RESP 19; TEMP 98.1
[2024-03-25 15:42] LABS: PHOSPHORUS 1.5 mg/dL (2.5-4.9)
[2024-03-25 16:21] VITALS: BP 129/64; PULSE 85; RESP 18; TEMP 97.8
[2024-03-25 16:57] LABS: PLATELET ESTIMATE NORMAL
[2024-03-25 16:58] LABS: ANISOCYTOSIS 1+
[2024-03-25 18:18] LABS: POTASSIUM 3.2 mEq/L (3.5-5.1)
[2024-03-25 20:00] VITALS: BP 122/65; PULSE 77; RESP 18; TEMP 97.8
[2024-03-25] MEDS: POTASSIUM PHOSPHATE 20 MMOL in DEXT 5% WATER 243.3333 ML IV SCH (23:04)
[2024-03-26] VITALS: BP 105/55; PULSE 82; RESP 18; TEMP 97.2
[2024-03-26 04:00] VITALS: BP 106/57; PULSE 86; RESP 18; TEMP 98.2
[2024-03-26 05:36] LABS: CARBON DIOXIDE 28 mEq/L (21-32); CHLORIDE 96 mEq/L (98-107); SODIUM 131 mEq/L (136-145)
[2024-03-26 05:37] LABS: CALCIUM 8.2 mg/dL (8.7-10.4)
[2024-03-26 05:42] LABS: GLUCOSE 214 mg/dL (70-105); UREA NITROGEN BLOOD 5 mg/dL (9-23)
[2024-03-26 05:44] LABS: ALANINE AMINOTRANSFERASE 35 IU/L (10-49); ALBUMIN 3.1 g/dL (3.2-4.8); ASPARTATE AMINOTRANSFERASE 44 IU/L (<34); BILIRUBIN TOTAL 3.4 mg/dL (0.1-1.0); PROTEIN TOTAL 5.4 g/dL (6.0-8.3)
[2024-03-26 05:58] LABS: CREATININE 0.4 mg/dL (0.6-1.3)
[2024-03-26 06:03] LABS: HEMATOCRIT. 31.6 % (42.0-52.0); HEMOGLOBIN. 10.4 g/dL (14.0-18.0); MEAN CORPUSCULAR HEMOGLOBIN 27.7 pg (28.0-32.0); MEAN CORPUSCULAR HGB CONC 32.9 g/dL (31.0-37.0); MEAN PLATELET VOLUME 8.5 fl (7.4-10.4); PLATELET 240 x1000/uL (130-400); RED BLOOD CELL COUNT 3.76 mill/uL (4.7-6.1); WHITE BLOOD COUNT 11.4 x1000/uL (4.5-11.0)
[2024-03-26 06:23] LABS: DIFFERENTIAL COMMENT 1
[2024-03-26 08:00] VITALS: BP 118/58; PULSE 85; RESP 18; TEMP 97.4
[2024-03-26 12:00] VITALS: BP 121/62; PULSE 83; RESP 18; TEMP 97.8
[2024-03-26] MEDS: KCL 20MEQ/100ML PREMIX 100 ML IV SCH (15:21)
[2024-03-26 15:29] LABS: PLATELET ESTIMATE NORMAL
[2024-03-26 16:00] VITALS: BP 114/57; PULSE 100; RESP 18; TEMP 97.6
[2024-03-26 20:00] VITALS: BP 129/64; PULSE 101; RESP 18; TEMP 98.6
[2024-03-26] MEDS: DILTIAZEM HCL 5MG/ML 5ML VIAL IV NR (23:26)
[2024-03-27] VITALS: BP 146/72; PULSE 104; RESP 20; TEMP 98.7
[2024-03-27] MEDS ORDERED: DILTIAZEM HCL 30MG TABLET PO SCH
[2024-03-27 04:00] VITALS: BP 136/72; PULSE 100; RESP 20; TEMP 98.7
[2024-03-27 06:29] LABS: HEMATOCRIT. 29.9 % (42.0-52.0); HEMOGLOBIN. 9.7 g/dL (14.0-18.0); MEAN CORPUSCULAR HEMOGLOBIN 27.3 pg (28.0-32.0); MEAN CORPUSCULAR HGB CONC 32.5 g/dL (31.0-37.0); MEAN PLATELET VOLUME 8.7 fl (7.4-10.4); PLATELET 289 x1000/uL (130-400); RED BLOOD CELL COUNT 3.55 mill/uL (4.7-6.1); RED CELL DISTRIBUTION WIDTH 16.1 % (11.6-14.6); WHITE BLOOD COUNT 15.9 x1000/uL (4.5-11.0)
[2024-03-27 06:40] LABS: CHLORIDE 99 mEq/L (98-107); SODIUM 134 mEq/L (136-145)
[2024-03-27 06:41] LABS: CALCIUM 8.5 mg/dL (8.7-10.4); CARBON DIOXIDE 30 mEq/L (21-32)
[2024-03-27 06:43] LABS: DIFFERENTIAL COMMENT 1
[2024-03-27 06:46] LABS: CREATININE 0.4 mg/dL (0.6-1.3); GLUCOSE 228 mg/dL (70-105)
[2024-03-27 06:47] LABS: UREA NITROGEN BLOOD 6 mg/dL (9-23)
[2024-03-27 06:48] LABS: ALANINE AMINOTRANSFERASE 42 IU/L (10-49); ASPARTATE AMINOTRANSFERASE 52 IU/L (<34)
[2024-03-27 06:49] LABS: BILIRUBIN TOTAL 4.9 mg/dL (0.1-1.0); PHOSPHORUS 1.6 mg/dL (2.5-4.9); PROTEIN TOTAL 5.4 g/dL (6.0-8.3)
[2024-03-27 08:00] VITALS: BP 121/69; PULSE 98; RESP 20; TEMP 97.6
[2024-03-27] MEDS: POTASSIUM CHLORIDE 20MEQ TABLET SR PO NR (08:56)
[2024-03-27 10:32] LABS: ANISOCYTOSIS 1+; PLATELET ESTIMATE NORMAL
[2024-03-27] MEDS: POTASSIUM PHOSPHATE 20 MMOL in DEXT 5% WATER 243.3333 ML IV NR (10:51)
[2024-03-27 12:00] VITALS: BP 121/63; PULSE 96; RESP 18; TEMP 97.8
[2024-03-27 16:00] VITALS: BP 112/48; PULSE 103; RESP 18; TEMP 99.5
[2024-03-28] VITALS (7 sets, daily range): BP systolic 107–140; BP diastolic 40–67; PULSE 78–90; RESP 18–20; TEMP 97.6–98.7; O2SAT 92
[2024-03-28 08:30] LABS: HEMATOCRIT. 27.7 % (42.0-52.0); HEMOGLOBIN. 8.9 g/dL (14.0-18.0); MEAN CORPUSCULAR HEMOGLOBIN 26.7 pg (28.0-32.0); MEAN CORPUSCULAR HGB CONC 32.2 g/dL (31.0-37.0); MEAN PLATELET VOLUME 8.9 fl (7.4-10.4); PLATELET 218 x1000/uL (130-400); RED BLOOD CELL COUNT 3.34 mill/uL (4.7-6.1); RED CELL DISTRIBUTION WIDTH 16.3 % (11.6-14.6); WHITE BLOOD COUNT 19.8 x1000/uL (4.5-11.0)
[2024-03-28 08:34] LABS: DIFFERENTIAL COMMENT 1
[2024-03-28 08:39] LABS: CHLORIDE 100 mEq/L (98-107); SODIUM 136 mEq/L (136-145)
[2024-03-28 08:41] LABS: CALCIUM 8.3 mg/dL (8.7-10.4); CARBON DIOXIDE 29 mEq/L (21-32)
[2024-03-28 08:46] LABS: CREATININE 0.5 mg/dL (0.6-1.3); GLUCOSE 193 mg/dL (70-105); UREA NITROGEN BLOOD 8 mg/dL (9-23)
[2024-03-28 08:47] LABS: ALANINE AMINOTRANSFERASE 44 IU/L (10-49)
[2024-03-28 08:48] LABS: ALBUMIN 2.9 g/dL (3.2-4.8); ASPARTATE AMINOTRANSFERASE 48 IU/L (<34)
[2024-03-28 08:49] LABS: BILIRUBIN TOTAL 5.3 mg/dL (0.1-1.0); PROTEIN TOTAL 5.1 g/dL (6.0-8.3)
[2024-03-28 10:44] LABS: POTASSIUM 2.8 mEq/L (3.5-5.1)
[2024-03-28] MEDS: POTASSIUM CHLORIDE 20MEQ TABLET SR PO NR (11:42)
[2024-03-28] MEDS: KCL 20MEQ/100ML PREMIX 100 ML IV SCH (12:31)
[2024-03-28 13:55] LABS: ANISOCYTOSIS 1+; PLATELET ESTIMATE NORMAL
[2024-03-28] MEDS: SODIUM PHOSPHATE 20 MMOL in DEXT 5% WATER 243.3333 ML IV NR (17:53)
== END 2024-03-28 20:45 | disposition hospice, home (50) | DRG 947 ==
LOC: ER 19:31 → 7WST 03-21 04:03
PROVIDERS: ADMIT Internal Medicine; ATTEND Internal Medicine
PROC: 02HV33Z Insertion of Infusion Device into Superior Vena Cava, Percutaneous Approach (ICD-10-PCS; principal; 2024-03-22)
PROC: B5181ZA Fluoroscopy of Superior Vena Cava using Low Osmolar Contrast, Guidance (ICD-10-PCS; 2024-03-22)
PROC: B548ZZA Ultrasonography of Superior Vena Cava, Guidance (ICD-10-PCS; 2024-03-22)
DX: G89.3 Neoplasm related pain (acute) (chronic) (principal); E43 Unspecified severe protein-calorie malnutrition; I26.99 Other pulmonary embolism without acute cor pulmonale; C25.9 Malignant neoplasm of pancreas, unspecified; C78.02 Secondary malignant neoplasm of left lung; C78.7 Secondary malignant neoplasm of liver and intrahepatic bile duct; E72.20 Disorder of urea cycle metabolism, unspecified; I82.412 Acute embolism and thrombosis of left femoral vein; R64 Cachexia; E11.9 Type 2 diabetes mellitus without complications; D64.9 Anemia, unspecified; E11.22 Type 2 diabetes mellitus with diabetic chronic kidney disease; E87.6 Hypokalemia; F03.90 Unspecified dementia, unspecified severity, without behavioral disturbance, psychotic disturbance, mood disturbance, and anxiety; R74.01 Elevation of levels of liver transaminase levels; I12.9 Hypertensive chronic kidney disease with stage 1 through stage 4 chronic kidney disease, or unspecified chronic kidney disease; I25.10 Atherosclerotic heart disease of native coronary artery without angina pectoris; N18.9 Chronic kidney disease, unspecified; Z51.5 Encounter for palliative care; Z85.07 Personal history of malignant neoplasm of pancreas; Z95.5 Presence of coronary angioplasty implant and graft; Z68.21 Body mass index [BMI] 21.0-21.9, adult
CPT/HCPCS: 36415; 36573; 36600; 71275; 74178; 74181; 80048; 80053; 80076; 81003; 82140; 82248; 82375; 82378; 82805; 82962; 83036; 83735; 84100; 84132; 85025; 86301; 86705; 87340; 93005; 93970; 99285; C1725; C1893; J1170; J1644; J1815; J2270; J2405; J3480; J3490; J7030; J7060; Q9967